=== PATIENT | female | born 1970 | race Asian ===

== ENCOUNTER 2017-07-29 13:39 | Outpatient (CLI) | payer OTHER | END 2017-07-29 20:00 | disposition home or self-care (01) | LOC: SMA 13:39 | PROVIDERS: ATTEND Internal Medicine | DX: Z12.31 Encounter for screening mammogram for malignant neoplasm of breast (principal) | CPT/HCPCS: G0202 ==

== ENCOUNTER 2018-04-07 11:33 | Outpatient (CLI) | payer OTHER | END 2018-04-07 23:22 | disposition home or self-care (01) | LOC: SMI 11:33 | PROVIDERS: ATTEND Internal Medicine | DX: M54.16 Radiculopathy, lumbar region (principal) | CPT/HCPCS: 72148 ==

== ENCOUNTER → 2018-05-17 | Outpatient (CLI) | payer OTHER | END | disposition home or self-care (01) | LOC: SUS 09:52 | PROVIDERS: ATTEND Specialist | DX: M16.11 Unilateral primary osteoarthritis, right hip (principal); I82.403 Acute embolism and thrombosis of unspecified deep veins of lower extremity, bilateral | CPT/HCPCS: 72195; 93970 ==